=== PATIENT | male | born 1980 | race Two or more races ===

== ENCOUNTER 2024-06-04 11:37 | Emergency (ER) | payer OTHER ==
[~2024-06-04] VITALS: Ht 185.4 cm; Wt 106.6 kg
[2024-06-04 11:48] VITALS: BP 135/83; O2SAT 96
== END 2024-06-04 16:00 | disposition home or self-care (01) ==
LOC: ER 11:39
DX: S93.691A Other sprain of right foot, initial encounter (principal); X58.XXXA Exposure to other specified factors, initial encounter; Y93.89 Activity, other specified; Y92.89 Other specified places as the place of occurrence of the external cause; Y99.9 Unspecified external cause status